=== PATIENT | female | born 1950 | race Caucasian/White ===

== ENCOUNTER 2017-10-05 14:14 | Emergency (ER) | payer MEDICARE ==
[2017-10-05] MEDS ORDERED: SODIUM CHLORIDE 0.9% 1,000 ML IV STA (14:27)
[2017-10-05] MEDS ORDERED: SODIUM CHLORIDE 0.9% 500 ML IV STA (14:27)
[2017-10-05] MEDS ORDERED: ONDANSETRON 4 MG/2 ML VIAL IVP STA (14:27)
[2017-10-05] MEDS ORDERED: LORazepam 2 MG/ML INJ IV STA (14:28)
[2017-10-05 14:43] LABS: Basophils % (A) 0 %; Eosinophils # (A) 0.2 k/uL (0-0.7); Eosinophils % (A) 2 %; HCT 43.7 % (34.0-46.0); HGB 13.7 gm/dL (11.4-16.0); Lymphocytes # (A) 1.6 k/uL (1.0-4.8); Lymphocytes % (A) 14 %; MCH 26.3 pg (25.0-35.0); MCHC 31.5 g/dL (31.0-37.0); MCV 83.6 fL (80.0-100.0); Mean Platelet Volume 7.9; Monocytes # (A) 0.5 k/uL (0-1.0); Monocytes % (A) 4 %; Neutrophils # (A) 8.6 k/uL (1.3-7.7); Neutrophils % (A) 78 %; Platelet Count 306 k/uL (150-450); RBC 5.22 m/uL (3.80-5.40); RDW 14.1 % (11.5-15.5)
--- NOTE | 2017-10-05 14:48 | ED ---
General Adult HPI - General Chief complaint: Nausea/Vomiting/Diarrhea Stated complaint: NAUSEA/VOMITING Time Seen by Provider: 10/05/17 14:17 Source: patient, EMS, RN notes reviewed, old records reviewed Mode of arrival: EMS Limitations: no limitations - History of Present Illness Initial comments: This is a 67-year-old female to the ER for evaluation intractable nausea and vomiting. Patient has history of LAP-BAND surgery, coming in today with significant nausea vomiting abdominal pain and weakness. No recent travel history no sick contacts no fevers. No diarrhea patient is a decreased appetite - Related Data Home Medications Medication Instructions Recorded Confirmed Benazepril HCl 40 mg PO DAILY 10/05/17 10/05/17 Fluticasone Nasal [place] [Flonase 1 spray EA NOSTRIL DAILY 10/05/17 10/05/17 Nasal [place]] Montelukast [Singulair] 10 mg PO DAILY 10/05/17 10/05/17 Multivitamins, Thera [Multivitamin 1 tab PO DAILY 10/05/17 10/05/17 (formulary)] Pantoprazole [Protonix] 40 mg PO DAILY 10/05/17 10/05/17 amLODIPine [Norvasc] 5 mg PO DAILY 10/05/17 10/05/17 tiZANidine HCL 4 mg PO Q8HR 10/05/17 10/05/17 traMADol HCL [Ultram] 100 mg PO Q8HR 10/05/17 10/05/17 Allergies Allergy/AdvReac Type Severity Reaction Status Date / Time No Known Allergies Allergy Verified 10/05/17 14:55 Review of Systems ROS Statement: Those systems with pertinent positive or pertinent negative responses have been documented in the HPI. ROS Other: All systems not noted in ROS Statement are negative. Past Medical History Past Medical History: Diabetes Mellitus, Fibromyalgia, Hypertension History of Any Multi-Drug Resistant Organisms: None Reported Past Surgical History: Cholecystectomy, Hysterectomy Past Psychological History: No Psychological Hx Reported Smoking Status: Never smoker Past Alcohol Use History: None Reported Past Drug Use History: None Reported General Exam Limitations: no limitations General appearance: alert, in no apparent distress, anxious Head exam: Present: atraumatic, normocephalic, normal inspection Eye exam: Present: normal appearance, PERRL, EOMI. Absent: scleral icterus, conjunctival injection, periorbital swelling ENT exam: Present: normal exam, mucous membranes moist Neck exam: Present: normal inspection. Absent: tenderness, meningismus, lymphadenopathy Respiratory exam: Present: normal lung sounds bilaterally. Absent: respiratory distress, wheezes, rales, rhonchi, stridor Cardiovascular Exam: Present: regular rate, normal rhythm, normal heart sounds. Absent: systolic murmur, diastolic murmur, rubs, gallop, clicks GI/Abdominal exam: Present: soft, normal bowel sounds. Absent: distended, tenderness, guarding, rebound, rigid Extremities exam: Present: normal inspection, full ROM, normal capillary refill. Absent: tenderness, pedal edema, joint swelling, calf tenderness Back exam: Present: normal inspection Neurological exam: Present: alert, oriented X3, CN II-XII intact Psychiatric exam: Present: normal affect, normal mood Skin exam: Present: warm, dry, intact, normal color. Absent: rash Course Vital Signs 10/05/17 10/05/17 14:16 16:51 Temperature 97.5 F L Pulse Rate 90 98 Respiratory 18 16 Rate Blood Pressure 194/96 169/85 O2 Sat by Pulse 98 91 L Oximetry - Reevaluation(s) Reevaluation #1: 10/05/17 15:58 Pain and nausea currently well-controlled EKG Findings - EKG Comments: EKG Findings:: EKG shows normal sinus rhythm rate of 75, NH 140, QRS 90, QTc 469 Medical Decision Making - Lab Data Result diagrams: 10/05/17 14:20 10/05/17 14:20 Lab Results 10/05/17 10/05/17 10/05/17 Range/Units 14:20 14:20 14:20 WBC 11.0 H (3.8-10.6) k/uL RBC 5.22 (3.80-5.40) m/uL Hgb 13.7 (11.4-16.0) gm/dL Hct 43.7 (34.0-46.0) % MCV 83.6 (80.0-100.0) fL MCH 26.3 (25.0-35.0) pg MCHC 31.5 (31.0-37.0) g/dL RDW 14.1 (11.5-15.5) % Plt Count 306 (150-450) k/uL Neutrophils % 78 % Lymphocytes % 14 % Monocytes % 4 % Eosinophils % 2 % Basophils % 0 % Neutrophils # 8.6 H (1.3-7.7) k/uL Lymphocytes # 1.6 (1.0-4.8) k/uL Monocytes # 0.5 (0-1.0) k/uL Eosinophils # 0.2 (0-0.7) k/uL Basophils # 0.0 (0-0.2) k/uL PT (9.0-12.0) sec INR (<1.2) APTT (22.0-30.0) sec Sodium 143 (137-145) mmol/L Potassium 3.7 (3.5-5.1) mmol/L Chloride 105 (98-107) mmol/L Carbon Dioxide 22 (22-30) mmol/L Anion Gap 16 mmol/L BUN 18 H (7-17) mg/dL Creatinine 0.91 (0.52-1.04) mg/dL Est GFR (CKD-EPI)AfAm 76 (>60 ml/min/1.73 sqM) Est GFR (CKD-EPI)NonAf 65 (>60 ml/min/1.73 sqM) Glucose 215 H (74-99) mg/dL Plasma Lactic Acid Bird (0.7-2.0) mmol/L Calcium 9.7 (8.4-10.2) mg/dL Phosphorus 1.7 L (2.5-4.5) mg/dL Magnesium 1.8 (1.6-2.3) mg/dL Total Bilirubin 0.5 (0.2-1.3) mg/dL AST 23 (14-36) U/L ALT 17 (9-52) U/L Alkaline Phosphatase 97 (38-126) U/L Total Creatine Kinase 45 (30-135) U/L CK-MB (CK-2) 1.1 (0.0-2.4) ng/mL CK-MB (CK-2) Rel Index 2.4 Troponin I <0.012 (0.000-0.034) ng/mL Total Protein 7.3 (6.3-8.2) g/dL Albumin 4.3 (3.5-5.0) g/dL Urine Color Urine Appearance (Clear) Urine pH (5.0-8.0) Ur Specific [place] (1.001-1.035) Urine Protein (Negative) Urine Glucose (UA) (Negative) Urine Ketones (Negative) Urine Blood (Negative) Urine Nitrite (Negative) Urine Bilirubin (Negative) Urine Urobilinogen (<2.0) mg/dL Ur Leukocyte Esterase (Negative) Urine WBC (0-5) /hpf Ur Squamous Epith Cells (0-4) /hpf Amorphous Sediment (None) /hpf Urine Bacteria (None) /hpf 10/05/17 10/05/17 10/05/17 Range/Units 14:20 14:20 14:20 WBC (3.8-10.6) k/uL RBC (3.80-5.40) m/uL Hgb (11.4-16.0) gm/dL Hct (34.0-46.0) % MCV (80.0-100.0) fL MCH (25.0-35.0) pg MCHC (31.0-37.0) g/dL RDW (11.5-15.5) % Plt Count (150-450) k/uL Neutrophils % % Lymphocytes % % Monocytes % % Eosinophils % % Basophils % % Neutrophils # (1.3-7.7) k/uL Lymphocytes # (1.0-4.8) k/uL Monocytes # (0-1.0) k/uL Eosinophils # (0-0.7) k/uL Basophils # (0-0.2) k/uL PT 9.9 (9.0-12.0) sec INR 1.0 (<1.2) APTT 21.5 L (22.0-30.0) sec Sodium (137-145) mmol/L Potassium (3.5-5.1) mmol/L Chloride (98-107) mmol/L Carbon Dioxide (22-30) mmol/L Anion Gap mmol/L BUN (7-17) mg/dL Creatinine (0.52-1.04) mg/dL Est GFR (CKD-EPI)AfAm (>60 ml/min/1.73 sqM) Est GFR (CKD-EPI)NonAf (>60 ml/min/1.73 sqM) Glucose (74-99) mg/dL Plasma Lactic Acid Bird 2.4 H* (0.7-2.0) mmol/L Calcium (8.4-10.2) mg/dL Phosphorus (2.5-4.5) mg/dL Magnesium (1.6-2.3) mg/dL Total Bilirubin (0.2-1.3) mg/dL AST (14-36) U/L ALT (9-52) U/L Alkaline Phosphatase (38-126) U/L Total Creatine Kinase (30-135) U/L CK-MB (CK-2) (0.0-2.4) ng/mL CK-MB (CK-2) Rel Index Troponin I (0.000-0.034) ng/mL Total Protein (6.3-8.2) g/dL Albumin (3.5-5.0) g/dL Urine Color Light Yellow Urine Appearance Cloudy H (Clear) Urine pH 7.5 (5.0-8.0) Ur Specific [place] 1.012 (1.001-1.035) Urine Protein Negative (Negative) Urine Glucose (UA) 2+ H (Negative) Urine Ketones 1+ H (Negative) Urine Blood Negative (Negative) Urine Nitrite Negative (Negative) Urine Bilirubin Negative (Negative) Urine Urobilinogen <2.0 (<2.0) mg/dL Ur Leukocyte Esterase Negative (Negative) Urine WBC 5 (0-5) /hpf Ur Squamous Epith Cells 6 H (0-4) /hpf Amorphous Sediment Rare H (None) /hpf Urine Bacteria Occasional H (None) /hpf Disposition Clinical Impression: Nausea & vomiting Disposition: HOME SELF-CARE Condition: Good Instructions: Acute Nausea and Vomiting (ED) Is patient prescribed a controlled substance at d/c from ED?: No Referrals: Aurora Montenegro DO [Primary Care Provider] - 1-2 days
[2017-10-05 14:49] LABS: Amorphous Sediment,Urine Rare /hpf; Appearance,Urine Cloudy (Clear); Bacteria,Urine Occasional /hpf; Bilirubin,Urine Negative (Negative); Blood,Urine Negative (Negative); Color,Urine Light Yellow; Glucose,Urine (UA) 2+ (Negative); Ketones,Urine 1+ (Negative); Leukocyte Esterase,Urine Negative (Negative); Nitrite,Urine Negative (Negative); PH, Urine 7.5 (5.0-8.0); Protein,Urine Negative (Negative); Specific Gravity,Urine 1.012 (1.001-1.035); Squamous Epithelial Cell,Urine 6 /hpf (0-4); Urobilinogen,Urine <2.0 mg/dL (<2.0); WBC,Urine 5 /hpf (0-5)
[2017-10-05 14:57] LABS: Prothrombin Time 9.9 sec (9.0-12.0)
[2017-10-05 15:03] LABS: Albumin 4.3 g/dL (3.5-5.0); Calcium 9.7 mg/dL (8.4-10.2); Creatine Kinase 45 U/L (30-135); Magnesium 1.8 mg/dL (1.6-2.3); Phosphorus 1.7 mg/dL (2.5-4.5); Total Bilirubin 0.5 mg/dL (0.2-1.3); Total Protein 7.3 g/dL (6.3-8.2)
[2017-10-05 15:04] LABS: Potassium 3.7 mmol/L (3.5-5.1)
[2017-10-05 15:05] LABS: Partial Thromboplastin Time 21.5 sec (22.0-30.0)
[2017-10-05 15:14] LABS: Creatine Kinase MB 1.1 ng/mL (0.0-2.4); Troponin I <0.012 ng/mL (0.000-0.034)
--- NOTE | 2017-10-05 15:39 | XR ---
EXAMINATION TYPE: XR abdomen acute w cxr DATE OF EXAM: 10/05/2017 CLINICAL HISTORY: Chest pain. Nausea and vomiting today. TECHNIQUE: Single frontal view of chest is obtained. Supine and upright views of the abdomen are acq uired. COMPARISON: None. FINDINGS: There is chronic parenchymal change without suspicious focal airspace opacity, pleural effu robb, or pneumothorax seen bilaterally. Cardiac silhouette size appears upper limits of normal. Oss eous structures are demineralized. Lap band device is malpositioned projecting both above left hemidiaphragm suggesting slippage. Phi an gle is maintained. Gas is noted in nondistended small bowel loops. Gas and fecal material is seen in nondistended colon. Numerous pelvic phleboliths are seen. No pneumoperitoneum is evident. IMPRESSION: 1. Cardiomegaly and chronic changes without acute pulmonary process. 2. Overall nonspecific but likely nonobstructive bowel gas pattern. Lap band slippage is present. Adv ise surgical referral to assess for removal.
[2017-10-05] MEDS ORDERED: IOPAMIDOL-300 CONTRAST 30 ML VIAL (ORAL USE) PO PRN (15:48)
[2017-10-05] MEDS ORDERED: RX INFO: IV CONTRAST WAS GIVEN 1 EACH MISC MISCELLANE PRN (15:48)
[2017-10-05] MEDS ORDERED: MORPHINE SULFATE 4 MG/ML SYRINGE IVP STA (15:48)
[2017-10-05 16:52] VITALS: BP 169/85; PULSE 98; RESP 16
--- NOTE | 2017-10-05 16:55 | CT ---
EXAMINATION TYPE: CT abdomen pelvis w con DATE OF EXAM: 10/05/2017 COMPARISON: NONE INDICATION: Nausea, vomiting and dizziness today DLP: 1214.1 mGycm, Automated exposure control for dose reduction was used. CONTRAST: 100 mL of Isovue 300. Study performed with Oral Contrast TECHNIQUE: Axial images were obtained from above the diaphragm to the pubic rami in the axial plane a t 5 mm thick sections. Reconstructed images are reviewed on the computer in the coronal plane. FINDINGS: Limited CT sections are obtained the lung bases. The lung bases are clear. LAP-BAND is evident with in the upper abdomen. There is a moderate-sized hiatal hernia present. Stomach appears unremarkable. CT ABDOMEN: Liver: Normal Spleen: Normal Pancreas: Normal Adrenal glands: The adrenal glands are normal. Gallbladder: Surgically absent Kidneys: No masses are evident. No hydronephrosis is present. No cysts are present. Delayed images were obtained through the kidneys, which remain unremarkable. Aorta: Vascular calcification is within the aorta. Inferior vena cava: Normal. CT PELVIS: Loops of bowel within the abdomen and pelvis are normal. There are loops of bowel which are incom pletely distended or lack oral contrast limiting their evaluation. Appendix: Normal as visualized. Urinary bladder: Normal. Genitourinary structures: Uterus and ovaries are not identified. Osseous structures: No suspicious lytic or sclerotic lesions. IMPRESSIONS: 1. Left basilar present. 2. Moderate sized Hiatal hernia.
[2017-10-05 17:33] VITALS: TEMP 97.6
== END 2017-10-05 17:32 | disposition home or self-care (01) ==
LOC: EC 14:14
DX: R11.2 Nausea with vomiting, unspecified (principal); R10.9 Unspecified abdominal pain; R53.1 Weakness; M79.7 Fibromyalgia; I10 Essential (primary) hypertension; Z79.51 Long term (current) use of inhaled steroids; Z79.899 Other long term (current) drug therapy; Z98.890 Other specified postprocedural states
CPT/HCPCS: 36415; 93005; 80053; 82550; 82553; 83605; 83735; 84100; 84484; 85025; 85610; 85730; 81001; 87086; 74022; 74177; 99285; 96374; 96375 ×2; 96361; J2060; J2270; J2405; Q9967

== ENCOUNTER → 2017-10-30 | Outpatient (CLI) | payer MEDICARE ==
--- NOTE | 2017-10-30 16:51 | P.HPBAR ---
Bariatric H&P - History & Physicial H&P Date: 10/30/17 History & Physicial: Visit/CC: Patient initial contact: Initial weight: Initial weight in pounds: Height: Initial BMI: Last weight: Current weight: Current weight in pounds: Current BMI: [place] body weight (based on NIH guidelines): Excess body weight loss: The patient is a 67 year-old F who presents for Bariatric Assessment. The patient presents today for lab band follow. She's not been seen in several years. The patient had a recent in retrograde visit for abdominal pain. She is found have evidence of a hiatal hernia in the LAP-BAND migration into the chest within the hiatal hernia. She's had troubles with dysphagia. Past Medical History Past Medical History: Diabetes Mellitus, Fibromyalgia, Hypertension, Respiratory Disorder Additional Past Medical History / Comment(s): Type 2 DM resolved one year after lap band placed, patient states her blood sugars, chronic sinsusitis History of Any Multi-Drug Resistant Organisms: None Reported Past Surgical History: Bariatric Surgery, Cholecystectomy, Hysterectomy Additional Past Surgical History / Comment(s): Lap band 2001 (??) Past Anesthesia/Blood Transfusion Reactions: No Reported Reaction, Motion Sickness Additional Past Anesthesia/Blood Transfusion Reaction / Comm: No blood transfusion to date Past Psychological History: No Psychological Hx Reported Smoking Status: Never smoker Past Alcohol Use History: None Reported Past Drug Use History: None Reported Surgical - Exam - General well developed, no distress - Eyes PERRL - Abdomen Abdomen: soft, non tender Bariatric Assessment & Plan Plan: The patient's CAT scan was reviewed with her. She has a large hiatal hernia. The stomach and LAP-BAND have migrated into the chest. I discussed patient that she will need to have her band removed. It her hiatal hernia repair. Her LAP-BAND was emptied she had 2 mL removed from her band. She'll be scheduled for surgery next week. Bariatric Checklist Checklist: Plan: Checklist: EGD: 1. Hiatal hernia: 2. H. Pylori: HgbA1c: Vitamin D: Smoking: Never smoker Primary care physician referral: Psychiatry clearance: Cardiology clearance: Sleep study: Diet journal: VTE risk score: VTE risk level: Rehab needs at discharge:
[2017-10-30 16:58] VITALS: BP 142/86; PULSE 78; RESP 14; TEMP 97.8; BMI 34.7
[2017-10-30 17:00] LABS: Basophils % (A) 1 %; Eosinophils # (A) 0.3 k/uL (0-0.7); Eosinophils % (A) 4 %; HGB 13.4 gm/dL (11.4-16.0); Lymphocytes # (A) 1.9 k/uL (1.0-4.8); Lymphocytes % (A) 25 %; MCH 27.3 pg (25.0-35.0); MCHC 31.9 g/dL (31.0-37.0); MCV 85.5 fL (80.0-100.0); Mean Platelet Volume 7.3; Monocytes # (A) 0.5 k/uL (0-1.0); Monocytes % (A) 7 %; Neutrophils # (A) 4.5 k/uL (1.3-7.7); Neutrophils % (A) 61 %; Platelet Count 264 k/uL (150-450); RBC 4.91 m/uL (3.80-5.40); RDW 14.4 % (11.5-15.5); WBC 7.4 k/uL (3.8-10.6)
[2017-10-30 17:03] LABS: Albumin 4.2 g/dL (3.5-5.0); Calcium 10.2 mg/dL (8.4-10.2); Potassium 4.6 mmol/L (3.5-5.1); Total Bilirubin 0.3 mg/dL (0.2-1.3); Total Protein 6.8 g/dL (6.3-8.2)
== END | disposition home or self-care (01) ==
LOC: BARWHC3 14:26
PROVIDERS: ATTEND Surgery
DX: Z48.815 Encounter for surgical aftercare following surgery on the digestive system (principal); K44.9 Diaphragmatic hernia without obstruction or gangrene; Z01.812 Encounter for preprocedural laboratory examination; Z98.84 Bariatric surgery status
CPT/HCPCS: 80053; 85025; G0463; 99201

== ENCOUNTER 2017-11-06 08:29 | Day surgery (SDC) | payer MEDICARE ==
[~2017-11-06 08:29] MED LIST: DEXAMETHASONE SOD PHOSPHATE 10 MG/ML 1 ML VIAL IV ONE; ENOXAPARIN 40 MG/0.4 ML SYRINGE SQ ONE; HYDROmorphone 0.5 MG/0.5 ML SYRINGE IVP PRN; LACTATED RINGERS 1,000 ML IV SCH; LIDOCAINE 1% 20 ML VIAL (10MG/ML) FOR IV START INTRADERMA PRN; ONDANSETRON 4 MG/2 ML VIAL IVP ONE; ONDANSETRON 4 MG/2 ML VIAL IVP PRN; SCOPOLAMINE 1.5MG/72HR PATCH TRANSDERM ONE; ceFAZolin IN SWFI 2 GM/20 ML SYRINGE IVP ONE; fentaNYL (PF) 50 MCG/ML 2 ML AMP IV PRN
[2017-11-06 09:12] LABS: Glucose,Whole Blood 117 mg/dL (75-99)
[2017-11-06] MEDS: MIDAZOLAM 2 MG/2 ML VIAL IV PRN ×2 (09:20→09:28)
--- NOTE | 2017-11-06 10:09 | P.GSHP ---
History of Present Illness H&P Date: 11/06/17 Chief Complaint: Gastric prolapse and hiatal hernia This is a 67-year-old female who presents today for removal LAP-BAND and repair of hiatal hernia. Patient developed a hiatal hernia which the band is no the intrathoracic position. She presents today for removal band and repair of hiatal hernia. Past Medical History Past Medical History: Diabetes Mellitus, Fibromyalgia, Hypertension Additional Past Medical History / Comment(s): Type 2 DM resolved one year after lap band placed, chronic sinsusitis History of Any Multi-Drug Resistant Organisms: None Reported Past Surgical History: Bariatric Surgery, Cholecystectomy, Hysterectomy Additional Past Surgical History / Comment(s): Lap band 2001, RAHUL CATARACTS Past Anesthesia/Blood Transfusion Reactions: Motion Sickness, Postoperative Nausea & Vomiting (PONV) Additional Past Anesthesia/Blood Transfusion Reaction / Comment(s): No blood transfusion to date Past Psychological History: No Psychological Hx Reported Smoking Status: Never smoker Past Alcohol Use History: Rare Past Drug Use History: None Reported - Past Family History Brother(s) Family Medical History: Cancer Father Family Medical History: Deep Vein Thrombosis (DVT) Medications and Allergies Home Medications Medication Instructions Recorded Confirmed Type Benazepril HCl 40 mg PO QAM 10/05/17 11/06/17 History Montelukast [Singulair] 10 mg PO DAILY 10/05/17 11/02/17 History Multivitamins, Thera [Multivitamin 1 tab PO DAILY 10/05/17 11/06/17 History (formulary)] Pantoprazole [Protonix] 40 mg PO DAILY 10/05/17 11/06/17 History amLODIPine [Norvasc] 5 mg PO QAM 10/05/17 11/06/17 History tiZANidine HCL 4 mg PO Q8HR 10/05/17 11/06/17 History traMADol HCL [Ultram] 50 mg PO DIRECTED 10/05/17 11/06/17 History Zolpidem [Ambien] 10 mg PO HS 11/02/17 11/06/17 History Allergies Allergy/AdvReac Type Severity Reaction Status Date / Time No Known Allergies Allergy Verified 11/06/17 09:33 Surgical - Exam Vital Signs Temp Pulse Resp BP Pulse Ox 98.5 F 85 18 155/97 99 11/06/17 09:08 11/06/17 09:08 11/06/17 09:08 11/06/17 09:08 11/06/17 09:08 - General well developed, no distress - Eyes PERRL - ENT normal pinna - Neck no masses - Respiratory normal expansion - Cardiovascular Rhythm: regular - Abdomen Abdomen: soft, non tender Results - Labs Abnormal Lab Results - Last 24 Hours (Table) 11/06/17 Range/Units 09:05 POC Glucose (mg/dL) 117 H (75-99) mg/dL Assessment and Plan Assessment: Hiatal hernia with possible gastric prolapse. Patient undergo removal LAP-BAND and repair of hiatal hernia.
[2017-11-06] MEDS ORDERED: LIDOCAINE 1% INJ 10MG/ML (20 ML MDV) ONE (10:33)
[2017-11-06] MEDS ORDERED: PROPOFOL 10 MG/ML 20 ML VIAL IV ONE (10:33)
[2017-11-06] MEDS ORDERED: fentaNYL (PF) 50 MCG/ML 2 ML AMP ONE (10:33)
[2017-11-06] MEDS ORDERED: GLYCOPYRROLATE 0.2 MG/ML 2 ML VIAL ONE (10:33)
[2017-11-06] MEDS ORDERED: ROCURONIUM BROMIDE 10 MG/ML 10 ML VIAL IV ONE (10:33)
[2017-11-06] MEDS ORDERED: ePHEDrine SULFATE/0.9% NACL/PF 50 MG/5 ML SYRINGE IV ONE (10:33)
[2017-11-06] MEDS ORDERED: NEOSTIGMINE 1 MG/ML 10 ML VIAL ONE (10:33)
[2017-11-06] MEDS ORDERED: HYDROmorphone (PF) 1 MG/ML ONE (10:33)
[2017-11-06] MEDS ORDERED: MORPHINE SULFATE 10 MG/ML SYRINGE ONE (10:33)
[2017-11-06] MEDS ORDERED: KETOROLAC 30 MG/ML 1 ML VIAL ONE (10:33)
[2017-11-06] MEDS ORDERED: SUCCINYLCHOLINE CHLORIDE 100 MG/5 ML SYR IV ONE (10:33)
[2017-11-06] MEDS ORDERED: MIDAZOLAM 2 MG/2 ML VIAL ONE (10:33)
[2017-11-06] MEDS ORDERED: BUPIVACAINE (PF) 0.5% 30 ML VIAL SQ ONE (11:09)
[2017-11-06] MEDS ORDERED: LACTATED RINGERS 1,000 ML IV ONE (12:10)
[2017-11-06] MEDS ORDERED: ONDANSETRON 4 MG/2 ML VIAL IVP PRN (12:21)
[2017-11-06] MEDS ORDERED: HYDROmorphone 0.5 MG/0.5 ML SYRINGE IVP PRN (12:21)
--- NOTE | 2017-11-06 12:28 | P.OP ---
Date of Procedure: 11/06/17 Preoperative Diagnosis: Hiatal hernia Intrathoracic LAP-BAND Gastric prolapse Postoperative Diagnosis: Hiatal hernia Intrathoracic [place] Gastric prolapse Procedure(s) Performed: Laparoscopic removal LAP-BAND Laparoscopic repair of hiatal hernia Anesthesia: CATHERINE Surgeon: David Mayorga Estimated Blood Loss (ml): 20 Pathology: none sent Condition: stable Disposition: PACU Description of Procedure: The patient's placed on the operative table in the supine position. She received IV sedation and then general anesthesia. His placed in dorsal 5. Her abdomen was prepped and draped in usual sterile fashion. The skin was incised at the LAP-BAND port site. Using blunt and sharp dissection and electrocautery LAP-BAND port was excised. Then using a 5 mm optical trocar under direct visualization the peritoneal cavity is entered. The abdomen was then insufflated after adequate insufflation the laparoscope was placed back into the peritoneal cavity. Next a 5 mm trochars placed in the right upper quadrant , right lateral, left lateral position. A another 5 mm trocar was placed in the left periumbilical area. The left lateral lobe liver was retracted. Stomach was visualized. Patient had a hiatal hernia in the posterior portion of the LAP-BAND was within the thorax. The LAP-BAND device was retracted back into the pleural cavity. And then using blunt and sharp dissection with cautery the anterior gastric wall plication was taken down care was taken to identify and preserve the gastric wall. The LAP-BAND device was then cut withdrawn from the stomach. At this point the niki was dissected free from the stomach. And then the stomach was insufflated with methylene blue normal saline. 500 mL of fluid was used the trochars withdrawn. The skin was closed interrupted 3-0 Monocryl suture. Dermabond was applied. used to fill the stomach there is no evidence of leaks. At this point the hiatal hernia was closed using 2-0 Ethibond suture. The abdomen was irrigated there is no bleeding seen.
[2017-11-06] MEDS ORDERED: D5-0.45% NACL WITH KCL 20MEQ/L 1,000 ML IV SCH (13:15)
[2017-11-06 14:19] VITALS: BMI 34.0
[2017-11-06] MEDS ORDERED: hydrALAZINE HCL 25 MG TAB PO STA (14:53)
--- NOTE | 2017-11-06 15:06 | P.CONS ---
History of Present Illness - Reason for Consult Consult date: 11/06/17 Medical management Requesting physician: David Mayorga - Chief Complaint Status post hiatal hernia repair and lap and removal - History of Present Illness This is a 67-year-old female, patient of [facility]. Patient has a known past medical history of hypertension, lap band procedure in 2001, fibromyalgia, vertigo, type 2 diabetes mellitus now resolved after weight loss from flat that procedure. Patient over the last couple months has had vomiting area. Last episode of vomiting was in September and which she required a visit at the ER. At that time she was found to have a moderate sized hiatal hernia. And was told that the LAP-BAND had moved. Patient underwent surgery today with Dr. Mayorga for laparoscopic hiatal hernia repair and removal of lap band. Patient has tolerated surgery well. Patient is complaining of gas pain in her shoulders. She also reports that she had been anxious prior to surgery. However, now per patient reporting that she is feeling very calm. She is still having elevated blood pressure. Systolic blood pressures ranging in the 180s. She did report taking her MAYKEL inhibitor and the Norvasc this morning prior to surgery. Patient denies any chest pain or shortness of breath. Denies any nicotine use or alcohol use. Denies any nausea or vomiting. Denies any bowel movement changes or urinary symptoms. We have been consulted for medical management. Review of Systems Please refer to HPI otherwise unremarkable Past Medical History Past Medical History: Diabetes Mellitus, Fibromyalgia, Hypertension Additional Past Medical History / Comment(s): Type 2 DM resolved one year after lap band placed, chronic sinsusitis History of Any Multi-Drug Resistant Organisms: None Reported Past Surgical History: Bariatric Surgery, Cholecystectomy, Hysterectomy Additional Past Surgical History / Comment(s): Lap band 2001, RAHUL CATARACTS Past Anesthesia/Blood Transfusion Reactions: Motion Sickness, Postoperative Nausea & Vomiting (PONV) Additional Past Anesthesia/Blood Transfusion Reaction / Comm: No blood transfusion to date Past Psychological History: No Psychological Hx Reported Smoking Status: Never smoker Past Alcohol Use History: Rare Past Drug Use History: None Reported - Past Family History Brother(s) Family Medical History: Cancer Father Family Medical History: Deep Vein Thrombosis (DVT) Medications and Allergies Home Medications Medication Instructions Recorded Confirmed Type Benazepril HCl 40 mg PO QAM 10/05/17 11/06/17 History Montelukast [Singulair] 10 mg PO DAILY 10/05/17 11/02/17 History Multivitamins, Thera [Multivitamin 1 tab PO DAILY 10/05/17 11/06/17 History (formulary)] Pantoprazole [Protonix] 40 mg PO DAILY 10/05/17 11/06/17 History amLODIPine [Norvasc] 5 mg PO QAM 10/05/17 11/06/17 History tiZANidine HCL 4 mg PO Q8HR 10/05/17 11/06/17 History traMADol HCL [Ultram] 50 mg PO DIRECTED 10/05/17 11/06/17 History Zolpidem [Ambien] 10 mg PO HS 11/02/17 11/06/17 History Allergies Allergy/AdvReac Type Severity Reaction Status Date / Time No Known Allergies Allergy Verified 11/06/17 09:33 Physical Exam Vitals: Vital Signs Temp Pulse Resp BP Pulse Ox 11/06/17 14:28 86 16 177/81 98 11/06/17 14:13 96.9 F L 91 16 183/95 97 11/06/17 13:32 97 14 168/72 100 11/06/17 13:17 93 12 165/75 100 11/06/17 13:02 95 16 171/76 100 11/06/17 12:47 96 14 167/103 100 11/06/17 12:32 97.0 F L 100 16 173/78 100 11/06/17 09:08 98.5 F 85 18 155/97 99 Intake and Output 11/05/17 11/06/17 11/06/17 22:59 06:59 14:59 Intake Total 1800 Output Total 20 Balance 1780 Intake: IV 1800 Output: Estimated Blood Loss 20 Other: Voiding Method Toilet Weight 92.8 kg Head normocephalic Neck supple Lungs clear to auscultation bilaterally no wheezing or crackles Heart regular rate and rhythm S1-S2, no rub or gallop Abdomen is soft tender incision sites. Incision site clean and intact. Minimal dried blood. Extremities no edema. SCDs in place Neuro alert and orientated to 3 Results Labs: Abnormal Lab Results - Last 24 Hours (Table) 11/06/17 Range/Units 09:05 POC Glucose (mg/dL) 117 H (75-99) mg/dL Assessment and Plan Assessment: 1. Hiatal hernia, intrathoracic lap band, and gastric prolapse. Patient status post laparoscopic removal of lap band and repair of hiatal hernia. Patient has tolerated surgery well. Continue with current postop orders. Surgeries place patient on a clear liquid diet. Continue with the [place] for pain control 2. Essential hypertension: Patient has been having episodes of accelerated hypertension. Will give 1 dose of hydralazine 25 mg by mouth 1. Resume patient's Norvasc and MAYKEL inhibitor. Continue to monitor blood pressure closely. We'll make further adjustments as needed. 3. History of fibromyalgia 4. Generalized anxiety disorder. 5. History of Diabetes mellitus type 2 that resolved after weight loss. We'll place patient on sliding scale with Accu-Cheks every before meals and at bedtime. Check A1c GI prophylaxis Protonix and DVT prophylaxis Lovenox Thank you for this consultation. We'll continue to follow along with you. Time with Patient: Greater than 30 (Greater than 60% of the total time spent in counseling and coordination of care.I performed an examination of the patient and discussed their management with the physician Population Geneticist. I have reviewed the Physician Population Geneticist's notes and agree with the documented findings and plan of care)
[2017-11-06 17:04] LABS: Glucose,Whole Blood 262 mg/dL (75-99)
[2017-11-06] MEDS: INSULIN ASPART 100 UNIT/ML 1 ML 10 ML VIAL SQ SCH ×2 (17:08→21:20)
[2017-11-06] MEDS: SODIUM CHLORIDE 0.9% 1,000 ML IV SCH (17:10)
[2017-11-06 21:08] LABS: Glucose,Whole Blood 243 mg/dL (75-99)
[2017-11-06 21:54] VITALS: RESP 18
[2017-11-07] MEDS: SODIUM CHLORIDE 0.9% 1,000 ML IV SCH ×2 (00:28→08:22)
[2017-11-07 07:02] LABS: Glucose,Whole Blood 95 mg/dL (75-99)
[2017-11-07 07:06] LABS: Basophils % (A) 0 %; Eosinophils # (A) 0.1 k/uL (0-0.7); Eosinophils % (A) 0 %; HCT 39.3 % (34.0-46.0); HGB 12.7 gm/dL (11.4-16.0); Lymphocytes # (A) 1.8 k/uL (1.0-4.8); Lymphocytes % (A) 16 %; MCH 27.9 pg (25.0-35.0); MCHC 32.4 g/dL (31.0-37.0); Mean Platelet Volume 7.1; Monocytes # (A) 0.9 k/uL (0-1.0); Monocytes % (A) 8 %; Neutrophils # (A) 8.2 k/uL (1.3-7.7); Neutrophils % (A) 73 %; Platelet Count 306 k/uL (150-450); RBC 4.57 m/uL (3.80-5.40); WBC 11.3 k/uL (3.8-10.6)
[2017-11-07 07:09] VITALS: BP 148/86; PULSE 80; TEMP 98.2
[2017-11-07 07:20] LABS: Albumin 3.9 g/dL (3.5-5.0); Calcium 9.5 mg/dL (8.4-10.2); Potassium 4.4 mmol/L (3.5-5.1); Total Bilirubin 0.5 mg/dL (0.2-1.3); Total Protein 6.2 g/dL (6.3-8.2)
[2017-11-07] MEDS ORDERED: PANTOPRAZOLE 40 MG TABLET PO SCH (07:30)
[2017-11-07] MEDS: INSULIN ASPART 100 UNIT/ML 1 ML 10 ML VIAL SQ SCH ×2 (07:52→12:41)
[2017-11-07] MEDS ORDERED: amLODIPine 5 MG TAB PO SCH (09:00)
[2017-11-07] MEDS ORDERED: LISINOPRIL 20 MG TAB PO SCH (09:00)
[2017-11-07] MEDS ORDERED: ENOXAPARIN 40 MG/0.4 ML SYRINGE SQ SCH (09:00)
[2017-11-07] MEDS ORDERED: HYDROcodone/APAP 5-325MG 1 EACH TAB PO PRN (09:16)
[2017-11-07] MEDS: MONTELUKAST 10 MG TAB PO SCH ×2 (09:23→09:38)
--- NOTE | 2017-11-07 11:04 | P.PN ---
Subjective Progress Note Date: 11/07/17 67-year-old female seen examined at bedside sitting up in bed patient reports did not sleep last night was given IV Dilaudid which "made my mouth dry felt dizzy lightheaded do not like the sensation. Patient is refusing to have the FL esophagram states the last time made her feel nauseated and she had loose stool diarrhea" patient states she feels like she swallowing without any difficulty. Is anxious to be discharged. Patient does report having discomfort to the bilateral shoulders states belching not passing gas rectally no stool no nausea no vomiting Postop November 06 laparoscopic removal of the LAP-BAND, laparoscopic repair of hiatal hernia Objective - Vital Signs Vital signs: Vital Signs Temp 98.2 F 11/07/17 07:00 Pulse 80 11/07/17 07:00 Resp 18 11/07/17 07:00 BP 148/86 11/07/17 07:00 Pulse Ox 95 11/07/17 08:54 Intake & Output 11/06/17 11/07/17 11/07/17 18:59 06:59 18:59 Intake Total 1800 400 Output Total 840 600 Balance 960 -200 Weight 92.8 kg Intake: IV 1800 Oral 400 Output: Urine 820 600 Estimated Blood Loss 20 Other: Voiding Method Toilet Toilet # Voids 1 - Exam Physical exam 67-year-old female sitting up in bed reports has bilateral shoulder discomfort reports no nausea vomiting Lungs adequate air movement bilaterally sats on room air 95% Heart S1-S2 audible regular Abdomen surgical dressing sites dry soft surgical tenderness appropriate a few hypoactive bowel tones urinating no difficulty Extremities no edema - Labs CBC & Chem 7: 11/07/17 06:32 11/07/17 06:32 Labs: Abnormal Lab Results - Last 24 Hours (Table) 11/06/17 11/06/17 11/07/17 Range/Units 16:49 21:07 06:32 WBC 11.3 H (3.8-10.6) k/uL Neutrophils # 8.2 H (1.3-7.7) k/uL Creatinine (0.52-1.04) mg/dL Glucose (74-99) mg/dL POC Glucose (mg/dL) 262 H 243 H (75-99) mg/dL Total Protein (6.3-8.2) g/dL 11/07/17 Range/Units 06:32 WBC (3.8-10.6) k/uL Neutrophils # (1.3-7.7) k/uL Creatinine 1.18 H (0.52-1.04) mg/dL Glucose 104 H (74-99) mg/dL POC Glucose (mg/dL) (75-99) mg/dL Total Protein 6.2 L (6.3-8.2) g/dL Assessment and Plan Assessment: Impression Status post laparoscopic removal lap band and repair hiatal hernia Intrathoracic hiatal hernia History of morbid obesity with a lap band placed 15 years prior 2001 Essential hypertension Anxiety disorder History of fibromyalgia plan Continue postop surgical care Clear liquid diet Pain control Home meds appropriate DVT and GI prophylaxis The above impression and plan of care have been discussed and directed by signing physician. Morelia Archer nurse practitioner acting as scribe for signing physician.
[2017-11-07] MEDS ORDERED: MULTIVITAMINS, THERA 1 EACH TAB PO SCH (12:00)
[2017-11-07 12:28] LABS: Glucose,Whole Blood 129 mg/dL (75-99)
--- NOTE | 2017-11-07 12:34 | FL ---
EXAMINATION TYPE: FL esophagus cervic/pharynx DATE OF EXAM: 11/07/2017 HISTORY: Lap band removal and Sneha fundoplication. COMPARISON: NONE TECHNIQUE: A single contrast esophagram is performed utilizing 25 mL of Isovue 370. 1 minute and 5 s econds of fluoroscopy time was utilized with 13 images saved. FINDINGS: The esophagus shows normal motility and emptying into the stomach. There is mild to moderate delay at the gastroesophageal junction most commonly from postoperative edema. Contrast does extend into the stomach without evidence of leak. No significant gastroesophageal reflux was seen during real time pe rformance of this study. The gastroesophageal junction does appear to be above the diaphragmatic hiat us. Correlate with surgical history. IMPRESSION: No evidence of postoperative leak. Mild to moderate delayed passage through the gastroes ophageal junction likely from postoperative edema.
--- NOTE | 2017-11-07 13:52 | P.PN ---
Subjective Progress Note Date: 11/07/17 This is a 67-year-old female, patient of [facility]. Patient has a known past medical history of hypertension, lap band procedure in 2001, fibromyalgia, vertigo, type 2 diabetes mellitus now resolved after weight loss from flat that procedure. Patient over the last couple months has had vomiting area. Last episode of vomiting was in September and which she required a visit at the ER. At that time she was found to have a moderate sized hiatal hernia. And was told that the LAP-BAND had moved. Patient underwent surgery today with Dr. Mayorga for laparoscopic hiatal hernia repair and removal of lap band. Patient has tolerated surgery well. Patient is complaining of gas pain in her shoulders. She also reports that she had been anxious prior to surgery. However, now per patient reporting that she is feeling very calm. She is still having elevated blood pressure. Systolic blood pressures ranging in the 180s. She did report taking her MAYKEL inhibitor and the Norvasc this morning prior to surgery. Patient denies any chest pain or shortness of breath. Denies any nicotine use or alcohol use. Denies any nausea or vomiting. Denies any bowel movement changes or urinary symptoms. We have been consulted for medical management. 11/07/2017 patient is tolerating a liquid diet. Patient underwent esophagram showing no evidence of postoperative leak. Mild to moderate delayed passage through the GE junction likely from postoperative edema. Patient scheduled for discharge today. Pain is tolerable. No nausea or vomiting. Reports no gas or bowel movement yet. The shoulder gas pain and neck pain she was having has shown improvement since yesterday. Blood pressures have shown improvement since the hydralazine. Creatinine is at 1.18. White count 11.3. Patient denies any burning with urination or cough Objective - Vital Signs Vital signs: Vital Signs Temp 98.2 F 11/07/17 07:00 Pulse 80 11/07/17 07:00 Resp 18 11/07/17 07:00 BP 148/86 11/07/17 07:00 Pulse Ox 95 11/07/17 08:54 Intake & Output 11/06/17 11/07/17 11/07/17 18:59 06:59 18:59 Intake Total 1800 400 Output Total 840 600 10 Balance 960 -200 -10 Weight 92.8 kg 92.8 kg Intake: IV 1800 Oral 400 Output: Urine 820 600 10 Estimated Blood Loss 20 Other: Voiding Method Toilet Toilet # Voids 1 1 - Exam Head normocephalic Neck supple Lungs clear to auscultation bilaterally no wheezing or crackles Heart regular rate and rhythm S1-S2, no rub or gallop Abdomen is soft positive bowel sounds. Tender incision sites. Incision sites clean dry and intact no evidence of infection Extremities no edema Neuro alert and orientated to 3 - Labs CBC & Chem 7: 18 06:32 18 06:32 Labs: Abnormal Lab Results - Last 24 Hours (Table) 11/06/17 11/06/17 11/07/17 Range/Units 16:49 21:07 06:32 WBC 11.3 H (3.8-10.6) k/uL Neutrophils # 8.2 H (1.3-7.7) k/uL Creatinine (0.52-1.04) mg/dL Glucose (74-99) mg/dL POC Glucose (mg/dL) 262 H 243 H (75-99) mg/dL Total Protein (6.3-8.2) g/dL 11/07/17 11/07/17 Range/Units 06:32 12:25 WBC (3.8-10.6) k/uL Neutrophils # (1.3-7.7) k/uL Creatinine 1.18 H (0.52-1.04) mg/dL Glucose 104 H (74-99) mg/dL POC Glucose (mg/dL) 129 H (75-99) mg/dL Total Protein 6.2 L (6.3-8.2) g/dL Assessment and Plan Assessment: 1. Hiatal hernia, intrathoracic lap band, and gastric prolapse. Patient status post laparoscopic removal of lap band and repair of hiatal hernia. Patient has tolerated surgery well. Continue with current postop orders. Pain is controlled. Esophagram shows no evidence of a postoperative leak. Patient scheduled for discharge today. 2. Essential hypertension: Patient has been having episodes uncontrolled blood pressures after surgery. Improved with hydralazine. Patient is continue with her home medications the benazepril and Norvasc 3. History of fibromyalgia 4. Generalized anxiety disorder. 5. History of Diabetes mellitus type 2 that resolved after weight loss. A1c is pending. She had mildly elevated blood sugars secondary to the Decadron. Blood sugar this morning has improved 6. Leukocytosis likely related to the Decadron no evidence of infection. Patient is afebrile. 7. Acute kidney injury creatinine 1.18. Encourage patient to increase her fluid intake. She'll follow-up with her PCP in 1 week. At that time recommend checking BMP GI prophylaxis Protonix and DVT prophylaxis Lovenox Patient is medically stable for discharge. I performed an examination of the patient and discussed their management with the physician Director [employer]. I have reviewed the Physician Director [employer]'s notes and agree with the documented findings and plan of care
--- NOTE | 2017-11-07 13:53 | P.DS ---
Providers Expected date of discharge: 11/07/17 Attending physician: David Amaro Consults: 11/06/17 12:21 Consult Physician Routine Consulting Provider: Jenn Thrasher Consult Reason/Comments: Medical management Do you want consulting provider notified?: Yes Primary care physician: Aurora Montenegro [place] Hospital Course: 67-year-old female presented on the day of admission to undergo an elective lap band removal in a patient who had interthoracic hiatal hernia with gastric prolapse. The procedure was done on November 06. Patient is a history of morbid obesity with a lap band inserted 2001. Postop the patient underwent esophagram showed no evidence of a leak was tolerating a diet was felt to be appropriate to be discharged home Impression discharge diagnosis Laparoscopic repair of hiatal hernia, removal LAP-BAND for gastric prolapse with intrathoracic hiatal hernia done on November 06 Hypertension essential Anxiety disorder History of morbid obesity with the prior LAP-BAND in 2001 The above impression and plan of care have been discussed and directed by signing physician. Morelia Archer nurse practitioner acting as scribe for signing physician. Plan - Discharge Summary New Discharge Prescriptions: New HYDROcodone/APAP 5-325MG [[place] 5-325] 1 each PO Q4HR PRN #12 tab PRN Reason: Pain Continue traMADol HCL [Ultram] 50 mg PO DIRECTED tiZANidine HCL 4 mg PO Q8HR Pantoprazole [Protonix] 40 mg PO DAILY Multivitamins, Thera [Multivitamin (formulary)] 1 tab PO DAILY Montelukast [Singulair] 10 mg PO DAILY Benazepril HCl 40 mg PO QAM amLODIPine [Norvasc] 5 mg PO QAM Zolpidem [Ambien] 10 mg PO HS Discharge Medication List Benazepril HCl 40 mg PO QAM 10/05/17 [History] Montelukast [Singulair] 10 mg PO DAILY 10/05/17 [History] Multivitamins, Thera [Multivitamin (formulary)] 1 tab PO DAILY 10/05/17 [History ] Pantoprazole [Protonix] 40 mg PO DAILY 10/05/17 [History] amLODIPine [Norvasc] 5 mg PO QAM 10/05/17 [History] tiZANidine HCL 4 mg PO Q8HR 10/05/17 [History] traMADol HCL [Ultram] 50 mg PO DIRECTED 10/05/17 [History] Zolpidem [Ambien] 10 mg PO HS 11/02/17 [History] HYDROcodone/APAP 5-325MG [[place] 5-325] 1 each PO Q4HR PRN #12 tab 11/07/17 [Rx] Follow up Appointment(s)/Referral(s): David Amaro MD [STAFF PHYSICIAN] - 1 Week Activity/Diet/Wound Care/Special Instructions: No tub bath for six weeks. Shower daily. No lifting over 10 pounds for the next 6 weeks. Do not remove the plastic dressings from surgical site Soft diet small meals until seen in the follow-up visit with dr amaro May use ice packs to surgical site. No driving while taking narcotic for pain. Discharge Disposition: HOME WITH HOME HEALTH SERVICES
[2017-11-07 17:58] LABS: Hemoglobin A1C 7.3 % (4.0-6.0)
== END 2017-11-07 14:43 | disposition home health service (06) ==
LOC: OR 08:29 → 6PED 12:18 → OR 11-07 14:43
PROVIDERS: ATTEND Surgery
DX: K44.9 Diaphragmatic hernia without obstruction or gangrene (principal); Z45.89 Encounter for adjustment and management of other implanted devices; Z98.84 Bariatric surgery status; K31.89 Other diseases of stomach and duodenum; R14.1 Gas pain; E66.01 Morbid (severe) obesity due to excess calories; Z68.34 Body mass index [BMI] 34.0-34.9, adult; I10 Essential (primary) hypertension; F41.1 Generalized anxiety disorder; M79.7 Fibromyalgia; D72.829 Elevated white blood cell count, unspecified; N17.9 Acute kidney failure, unspecified; R42 Dizziness and giddiness; K21.9 Gastro-esophageal reflux disease without esophagitis; Z79.899 Other long term (current) drug therapy; Z79.891 Long term (current) use of opiate analgesic; Z86.39 Personal history of other endocrine, nutritional and metabolic disease
CPT/HCPCS: 94760; 80053; 85025; 83036; 74210; 43774; J2250; J1100; J2405; J1650 ×2; J1170; J0690; Q9967

== ENCOUNTER → 2017-11-20 | Outpatient (CLI) | payer MEDICARE ==
[2017-11-20 13:47] VITALS: BP 141/74; PULSE 85; RESP 15; TEMP 97.9; BMI 33.9
--- NOTE | 2017-11-20 13:56 | P.HPBAR ---
Bariatric H&P - History & Physicial H&P Date: 11/20/17 History & Physicial: Visit/CC: f/u from lap band removal and hernia repair Patient initial contact: Initial weight: 141.521 kg Initial weight in pounds: 312.00 Height: 5 ft 5 in Initial BMI: 51.9 Last weight: Current weight: 92.533 kg Current weight in pounds: 204.00 Current BMI: 33.9 [place] body weight (based on NIH guidelines): 56.699 kg Excess body weight loss: 57.7% The patient is a 67 year-old F who presents for Bariatric Assessment. Patient presents today for postoperative follow-up. She had her LAP-BAND removed prostate week ago. She's doing well. She's had no complaints of pain or dysphasia. Past Medical History Past Medical History: Diabetes Mellitus, Fibromyalgia, Hypertension Additional Past Medical History / Comment(s): Type 2 DM resolved one year after lap band placed, chronic sinsusitis History of Any Multi-Drug Resistant Organisms: None Reported Past Surgical History: Bariatric Surgery, Cholecystectomy, Hernia Repair, Hysterectomy Additional Past Surgical History / Comment(s): Lap band 2001 (removed 11/06/17), RAHUL CATARACTS Past Anesthesia/Blood Transfusion Reactions: Motion Sickness, Postoperative Nausea & Vomiting (PONV) Additional Past Anesthesia/Blood Transfusion Reaction / Comm: No blood transfusion to date Past Psychological History: No Psychological Hx Reported Smoking Status: Never smoker Past Alcohol Use History: Rare Past Drug Use History: None Reported - Past Family History Brother(s) Family Medical History: Cancer Father Family Medical History: Deep Vein Thrombosis (DVT) Surgical - Exam Vital Signs Temp Pulse Resp BP 97.9 F 85 15 141/74 11/20/17 13:43 11/20/17 13:43 11/20/17 13:43 11/20/17 13:43 - General well developed, no distress - Eyes PERRL - ENT normal pinna - Neck no masses - Respiratory normal expansion - Cardiovascular Rhythm: regular - Abdomen Abdomen: soft, non tender Bariatric Assessment & Plan Plan: Status post laparoscopic removal of LAP-BAND system. Patient did quite well. Her incision sites are clean dry intact. She'll follow-up in 12 weeks. Bariatric Checklist Checklist: Plan: Checklist: EGD: 1. Hiatal hernia: 2. H. Pylori: HgbA1c: Vitamin D: Smoking: Never smoker Primary care physician referral: denice Montenegro Psychiatry clearance: Cardiology clearance: Sleep study: Diet journal: VTE risk score: VTE risk level: Rehab needs at discharge:
== END | disposition home or self-care (01) ==
LOC: BARWHC3 13:00
PROVIDERS: ATTEND Surgery
DX: Z48.815 Encounter for surgical aftercare following surgery on the digestive system (principal); Z98.84 Bariatric surgery status
CPT/HCPCS: 99211

== ENCOUNTER → 2018-07-23 | Outpatient (CLI) | payer MEDICARE ==
--- NOTE | 2018-07-23 14:13 | XR ---
EXAMINATION TYPE: XR ribs LT DATE OF EXAM: 07/23/2018 COMPARISON: None HISTORY: Pain left chest wall TECHNIQUE: Two-view left RIBS supplemented with a frontal chest FINDINGS: No acute fractures are evident. No pneumothorax is evident. Lung doyle are clear. Hiatal h ernia is present. IMPRESSION: 1. No acute left rib fractures are evident.
== END | disposition home or self-care (01) ==
LOC: RADXRMAIN 13:52
PROVIDERS: ATTEND Family Medicine
DX: R07.89 Other chest pain (principal)

== ENCOUNTER → 2018-08-03 | Outpatient (CLI) | payer MEDICARE ==
[2018-08-07 07:03] LABS: Alt. alternata IgE Class CLASS 0; Alternaria alternata IgE <0.35 kU/L (<0.35); Asperg. fumagatus IgE <0.35 kU/L (<0.35); Asperg. fumagatus IgE Class CLASS 0; Aureo. pullulans IgE <0.35 kU/L (<0.35); Birch(Com.Silvr) IgE <0.35 kU/L (<0.35); Birch(Com.Silvr) IgE Class CLASS 0; Candida albicans IgE Class CLASS 0; Cat Epith & Dander IgE <0.35 kU/L (<0.35); Cat Epith & Dander IgE Class CLASS 0; Clad herbarum IgE <0.35 kU/L (<0.35); Cockroach IgE <0.35 kU/L (<0.35); Com. Pigweed IgE <0.35 kU/L (<0.35); Com. Pigweed IgE Class CLASS 0; Cottonwood IgE <0.35 kU/L (<0.35); Dermato. Pteronyssinus IgE <0.35 kU/L (<0.35); Dermato. farinae IgE <0.35 kU/L (<0.35); Dermato. farinae IgE Class CLASS 0; Dog Dander IgE <0.35 kU/L (<0.35); English Plantain IgE Class CLASS 0; Epicoccum purpurascens Class CLASS 0; Epicoccum purpurascens IgE <0.35 kU/L (<0.35); Johnson Grass IgE Class CLASS 0; Lamb's Quarter IgE <0.35 kU/L (<0.35); Lamb's Quarter IgE Class CLASS 0; Maple (Box Elder) IgE <0.35 kU/L (<0.35); Maple (Box Elder) IgE Class CLASS 0; Mucor racemosus IgE <0.35 kU/L (<0.35); Mucor racemosus IgE Class CLASS 0; Oak IgE <0.35 kU/L (<0.35); Rhizopus nigricans IgE <0.35 kU/L (<0.35); S.rostrata/Helminth Class CLASS 0; S.rostrata/Helminth IgE <0.35 kU/L (<0.35); Sycamore(Mpl.Lf) IgE <0.35 kU/L (<0.35); Timothy Grass IgE <0.35 kU/L (<0.35); Walnut Tree IgE <0.35 kU/L (<0.35); Walnut Tree IgE Class CLASS 0; White Ash IgE Class CLASS 0
== END ==
LOC: LABWHC1 14:55
PROVIDERS: ATTEND Otolaryngology
DX: L50.0 Allergic urticaria (principal); T78.2XXA Anaphylactic shock, unspecified, initial encounter
CPT/HCPCS: 36415; 86003

== ENCOUNTER → 2018-12-28 | Outpatient (CLI) | payer MEDICARE | END | disposition home or self-care (01) | LOC: RADCTMAIN 13:58 | PROVIDERS: ATTEND Physician Assistant Medical | DX: Z53.9 Procedure and treatment not carried out, unspecified reason (principal) ==

== ENCOUNTER → 2019-01-02 | Outpatient (CLI) | payer MEDICARE ==
--- NOTE | 2019-01-02 17:57 | CT ---
EXAMINATION TYPE: CT chest wo con DATE OF EXAM: 01/02/2019 COMPARISON: None HISTORY: myasthenia gravis CT DLP: 422.9 mGycm, Automated exposure control for dose reduction was used. CONTRAST: None. Patient refused IV contrast. TECHNIQUE: Axial images were obtained at 5 mm thick sections. Reconstructed images are reviewed on [employer] computer in the coronal plane. FINDINGS: Portion of the thyroid visualized is normal. No suspicious lung nodules or focal infiltrates are present. No enlarged mediastinal or hilar adenopathy is evident. The ascending aorta diameter at the level o f the main pulmonary artery is 3.8 cm. The main pulmonary artery diameter at the bifurcation is 2.3 cm. Some coronary artery calcification is present. Limited CT sections are obtained through the upper abdomen. There is a moderate size hiatal hernia pr esent. IMPRESSIONS: 1. Moderate size hiatal hernia. 2. No suspicious thymic masses.
== END | disposition home or self-care (01) ==
LOC: RADCTMAIN 12:31
PROVIDERS: ATTEND Psychiatry & Neurology Neurology
DX: K44.9 Diaphragmatic hernia without obstruction or gangrene (principal); G70.00 Myasthenia gravis without (acute) exacerbation
CPT/HCPCS: 71250

== ENCOUNTER → 2019-05-07 | Outpatient (CLI) | payer MEDICARE ==
[2019-05-07 10:56] LABS: Basophils # (A) 0.1 k/uL (0-0.2); Basophils % (A) 1 %; Eosinophils # (A) 0.3 k/uL (0-0.7); Eosinophils % (A) 4 %; HGB 12.3 gm/dL (11.4-16.0); Lymphocytes # (A) 2.5 k/uL (1.0-4.8); Lymphocytes % (A) 31 %; MCH 28.3 pg (25.0-35.0); MCHC 31.6 g/dL (31.0-37.0); MCV 89.6 fL (80.0-100.0); Mean Platelet Volume 7.4; Monocytes # (A) 0.4 k/uL (0-1.0); Monocytes % (A) 5 %; Neutrophils # (A) 4.6 k/uL (1.3-7.7); Neutrophils % (A) 57 %; Platelet Count 392 k/uL (150-450); RBC 4.35 m/uL (3.80-5.40); RDW 14.9 % (11.5-15.5); WBC 8.1 k/uL (3.8-10.6)
[2019-05-07 16:58] LABS: African American GFR (CKD) 53.4 (60.0-200.0); Albumin 4.5 g/dL (3.80-4.90); Albumin/Globulin Ratio 2.37 (1.60-3.17); Anion Gap 7.8 mmol/L (4.00-12.00); BUN/Creat Ratio 23.33 Ratio (12.00-20.00); Calcium 9.6 mg/dL (8.7-10.3); Carbon Dioxide 24.2 mmol/L (21.6-31.8); Globulin 1.9 g/dL (1.6-3.3); Non-African American GFR(CKD) 46.1 (60.0-200.0); Potassium 4.5 mmol/L (3.5-5.5); Total Bilirubin 0.3 mg/dL (0.2-1.2); Total Protein 6.4 g/dL (6.2-8.2)
[2019-05-07 17:08] LABS: Hepatitis B Surface Antigen Non-Reactive (Non-Reactive); Hepatitis C IgG Antibody Non-Reactive (Non-Reactive)
== END | disposition home or self-care (01) ==
LOC: LABWHC1 10:01
PROVIDERS: ATTEND Psychiatry & Neurology Neurology
DX: G47.00 Insomnia, unspecified (principal); D64.9 Anemia, unspecified
CPT/HCPCS: 36415; 80053; 80180; 83519; 85025; 86803; 87340

== ENCOUNTER → 2019-06-03 | Outpatient (CLI) | payer MEDICARE ==
[2019-06-03 15:38] LABS: Basophils # (A) 0.1 k/uL (0-0.2); Basophils % (A) 1 %; Eosinophils # (A) 0.2 k/uL (0-0.7); Eosinophils % (A) 2 %; HCT 40.5 % (34.0-46.0); HGB 12.7 gm/dL (11.4-16.0); Lymphocytes # (A) 2.3 k/uL (1.0-4.8); Lymphocytes % (A) 24 %; MCH 28.3 pg (25.0-35.0); MCHC 31.4 g/dL (31.0-37.0); MCV 90.1 fL (80.0-100.0); Mean Platelet Volume 8.5; Monocytes # (A) 0.6 k/uL (0-1.0); Monocytes % (A) 7 %; Neutrophils # (A) 6.1 k/uL (1.3-7.7); Neutrophils % (A) 65 %; Platelet Count 324 k/uL (150-450); RDW 14.6 % (11.5-15.5); WBC 9.5 k/uL (3.8-10.6)
== END | disposition home or self-care (01) ==
LOC: LABWHC1 13:58
PROVIDERS: ATTEND Psychiatry & Neurology Neurology
DX: G70.00 Myasthenia gravis without (acute) exacerbation (principal)
CPT/HCPCS: 36415; 85025

== ENCOUNTER → 2019-11-25 | Outpatient (CLI) | payer MEDICARE ==
[2019-11-25 15:20] LABS: Basophils # (A) 0.1 k/uL (0-0.2); Basophils % (A) 1 %; Eosinophils # (A) 0.3 k/uL (0-0.7); Eosinophils % (A) 3 %; HCT 40.9 % (34.0-46.0); HGB 12.8 gm/dL (11.4-16.0); Hypochromasia Marked; Lymphocytes # (A) 2.6 k/uL (1.0-4.8); Lymphocytes % (A) 30 %; MCH 27.9 pg (25.0-35.0); MCHC 31.3 g/dL (31.0-37.0); MCV 89.2 fL (80.0-100.0); Mean Platelet Volume 7.8; Monocytes # (A) 0.5 k/uL (0-1.0); Monocytes % (A) 6 %; Neutrophils # (A) 5.3 k/uL (1.3-7.7); Neutrophils % (A) 59 %; Platelet Count 356 k/uL (150-450); RBC 4.58 m/uL (3.80-5.40); RDW 14.2 % (11.5-15.5); WBC 8.8 k/uL (3.8-10.6)
== END | disposition home or self-care (01) ==
LOC: LABWHC1 14:36
PROVIDERS: ATTEND Psychiatry & Neurology Neurology
DX: G70.00 Myasthenia gravis without (acute) exacerbation (principal)
CPT/HCPCS: 36415; 85025

== ENCOUNTER → 2020-02-04 | Outpatient (CLI) | payer MEDICARE ==
[2020-02-04 15:42] LABS: Basophils # (A) 0.1 k/uL (0-0.2); Basophils % (A) 1 %; Eosinophils # (A) 0.4 k/uL (0-0.7); Eosinophils % (A) 4 %; HGB 12.4 gm/dL (11.4-16.0); Hypochromasia Moderate; Lymphocytes # (A) 2.4 k/uL (1.0-4.8); Lymphocytes % (A) 24 %; MCH 27.2 pg (25.0-35.0); MCHC 30.9 g/dL (31.0-37.0); Mean Platelet Volume 7.7; Monocytes # (A) 0.6 k/uL (0-1.0); Monocytes % (A) 6 %; Neutrophils # (A) 6.2 k/uL (1.3-7.7); Neutrophils % (A) 64 %; Platelet Count 339 k/uL (150-450); RBC 4.55 m/uL (3.80-5.40); RDW 14.6 % (11.5-15.5); WBC 9.7 k/uL (3.8-10.6)
== END | disposition home or self-care (01) ==
LOC: LABWHC1 14:36
PROVIDERS: ATTEND Psychiatry & Neurology Neurology
DX: G70.00 Myasthenia gravis without (acute) exacerbation (principal)
CPT/HCPCS: 36415; 85025

== ENCOUNTER → 2020-07-09 | Outpatient (CLI) | payer MEDICARE ==
[2020-07-09 23:04] LABS: Basophils # (A) 0.08 X 10*3/uL (0.00-0.10); Basophils % (A) 0.9 %; Eosinophils # (A) 0.47 X 10*3/uL (0.04-0.35); Eosinophils % (A) 5.1 %; HCT 39.7 % (37.2-46.3); HGB 12.2 g/dL (12.0-15.0); Lymphocytes # (A) 2.66 X 10*3/uL (0.90-5.00); Lymphocytes % (A) 28.6 %; MCH 27.2 pg (27.0-32.0); MCHC 30.7 g/dL (32.0-37.0); MCV 88.4 fL (80.0-97.0); Mean Platelet Volume 11.4 fL (9.5-12.2); Monocytes # (A) 0.88 X 10*3/uL (0.20-1.00); Monocytes % (A) 9.5 %; Neutrophils # (A) 5.17 X 10*3/uL (1.80-7.70); Neutrophils % (A) 55.5 %; Platelet Count 329 X 10*3/uL (140-440); RBC 4.49 X 10*6/uL (4.10-5.20); RDW 15.9 % (11.5-14.5)
== END | disposition home or self-care (01) ==
LOC: LABWHC1 15:07
PROVIDERS: ATTEND Psychiatry & Neurology Neurology
DX: G70.00 Myasthenia gravis without (acute) exacerbation (principal)
CPT/HCPCS: 36415; 83519; 85025

== ENCOUNTER → 2020-11-18 | Outpatient (CLI) | payer MEDICARE ==
[2020-11-18 18:50] LABS: Basophils # (A) 0.07 X 10*3/uL (0.00-0.10); Basophils % (A) 0.8 %; Eosinophils % (A) 4.4 %; HCT 38.1 % (37.2-46.3); HGB 11.5 g/dL (12.0-15.0); Lymphocytes % (A) 25.2 %; MCH 26.4 pg (27.0-32.0); MCHC 30.2 g/dL (32.0-37.0); MCV 87.6 fL (80.0-97.0); Mean Platelet Volume 10.9 fL (9.5-12.2); Monocytes # (A) 0.85 X 10*3/uL (0.20-1.00); Monocytes % (A) 9.3 %; Neutrophils # (A) 5.47 X 10*3/uL (1.80-7.70); Platelet Count 347 X 10*3/uL (140-440); RBC 4.35 X 10*6/uL (4.10-5.20); RDW 14.8 % (11.5-14.5); WBC 9.12 X 10*3/uL (4.50-10.00)
[2020-11-18 23:33] LABS: African American GFR (CKD) 58.9 (60.0-200.0); Albumin 4.3 g/dL (3.80-4.90); Albumin/Globulin Ratio 1.95 (1.60-3.17); Anion Gap 12.8 mmol/L (4.00-12.00); BUN/Creat Ratio 19.09 Ratio (12.00-20.00); Calcium 9.4 mg/dL (8.7-10.3); Carbon Dioxide 21.2 mmol/L (21.6-31.8); Globulin 2.2 g/dL (1.6-3.3); Non-African American GFR(CKD) 50.8 (60.0-200.0); Total Bilirubin 0.3 mg/dL (0.2-1.2); Total Protein 6.5 g/dL (6.2-8.2)
== END | disposition home or self-care (01) ==
LOC: LABWHC1 14:21
PROVIDERS: ATTEND Psychiatry & Neurology Neurology
DX: G70.00 Myasthenia gravis without (acute) exacerbation (principal)
CPT/HCPCS: 36415; 80053; 83519; 83735; 85025

== ENCOUNTER → 2021-03-31 | Outpatient (CLI) | payer MEDICARE ==
[2021-03-31 23:01] LABS: Basophils # (A) 0.11 X 10*3/uL (0.00-0.10); Basophils % (A) 1.2 %; Eosinophils # (A) 0.77 X 10*3/uL (0.04-0.35); Eosinophils % (A) 8.1 %; HCT 41.5 % (37.2-46.3); HGB 11.9 g/dL (12.0-15.0); Lymphocytes # (A) 2.31 X 10*3/uL (0.90-5.00); Lymphocytes % (A) 24.2 %; MCH 25.8 pg (27.0-32.0); MCHC 28.7 g/dL (32.0-37.0); Mean Platelet Volume 10.6 fL (9.5-12.2); Monocytes # (A) 0.84 X 10*3/uL (0.20-1.00); Monocytes % (A) 8.8 %; Neutrophils # (A) 5.49 X 10*3/uL (1.80-7.70); Neutrophils % (A) 57.4 %; Platelet Count 461 X 10*3/uL (140-440); RBC 4.61 X 10*6/uL (4.10-5.20); RDW 15.3 % (11.5-14.5); WBC 9.55 X 10*3/uL (4.50-10.00)
[2021-04-01 02:31] LABS: ALT 16 U/L (8-44); AST 15 U/L (13-35); African American GFR (CKD) 58.9 (60.0-200.0); Albumin 4.1 g/dL (3.8-4.9); Albumin/Globulin Ratio 1.64 (1.60-3.17); Alkaline Phosphatase 95 U/L (41-126); BUN/Creat Ratio 17.09 Ratio (12.00-20.00); Blood Urea Nitrogen 18.8 mg/dL (9.0-27.0); Calcium 9.9 mg/dL (8.7-10.3); Carbon Dioxide 20.3 mmol/L (21.6-31.8); Chloride 104 mmol/L (96-109); Globulin 2.5 g/dL (1.6-3.3); Glucose 230 mg/dL (70-110); Non-African American GFR(CKD) 50.8 (60.0-200.0); Potassium 4.5 mmol/L (3.5-5.5); Sodium 140 mmol/L (135-145); Total Bilirubin <0.20 mg/dL (0.30-1.20); Total Protein 6.6 g/dL (6.2-8.2)
== END | disposition home or self-care (01) ==
LOC: LABWHC1 15:36
PROVIDERS: ATTEND Psychiatry & Neurology Neurology
DX: G70.00 Myasthenia gravis without (acute) exacerbation (principal)
CPT/HCPCS: 36415; 80053; 85025

== ENCOUNTER → 2021-08-19 | Outpatient (CLI) | payer MEDICARE ==
[2021-08-19 18:58] LABS: Basophils # (A) 0.08 X 10*3/uL (0.00-0.10); Basophils % (A) 0.7 %; Eosinophils # (A) 0.39 X 10*3/uL (0.04-0.35); Eosinophils % (A) 3.5 %; HCT 39.9 % (37.2-46.3); HGB 11.6 g/dL (12.0-15.0); Immature Grans, Automated 0.3 %; Lymphocytes # (A) 2.59 X 10*3/uL (0.90-5.00); Lymphocytes % (A) 23.2 %; MCH 24.8 pg (27.0-32.0); MCHC 29.1 g/dL (32.0-37.0); MCV 85.4 fL (80.0-97.0); Mean Platelet Volume 11.7 fL (9.5-12.2); Monocytes # (A) 0.76 X 10*3/uL (0.20-1.00); Monocytes % (A) 6.8 %; NRBC Per 100 WBC 0 /100 WBCS (0.0-0.0); Neutrophils # (A) 7.29 X 10*3/uL (1.80-7.70); Neutrophils % (A) 65.5 %; Platelet Count 337 X 10*3/uL (140-440); RBC 4.67 X 10*6/uL (4.10-5.20); RDW 16.7 % (11.5-14.5); WBC 11.14 X 10*3/uL (4.50-10.00)
[2021-08-19 19:03] LABS: ALT 14 U/L (8-44); AST 12 U/L (13-35); African American GFR (CKD) 65.6 (60.0-200.0); Albumin 4.5 g/dL (3.8-4.9); Albumin/Globulin Ratio 1.96 (1.60-3.17); Alkaline Phosphatase 85 U/L (41-126); Blood Urea Nitrogen 20.5 mg/dL (9.0-27.0); Calcium 10.2 mg/dL (8.7-10.3); Carbon Dioxide 23.9 mmol/L (20.0-27.5); Chloride 103 mmol/L (96-109); Globulin 2.3 g/dL (1.6-3.3); Glucose 228 mg/dL (70-110); Non-African American GFR(CKD) 56.6 (60.0-200.0); Potassium 4.8 mmol/L (3.5-5.5); Sodium 140 mmol/L (135-145); Total Bilirubin <0.15 mg/dL (0.30-1.20); Total Protein 6.8 g/dL (6.2-8.2)
== END | disposition home or self-care (01) ==
LOC: LABWHC1 12:46
PROVIDERS: ATTEND Nurse Practitioner Adult Health
DX: G70.00 Myasthenia gravis without (acute) exacerbation (principal)
CPT/HCPCS: 36415; 80053; 85025

== ENCOUNTER → 2021-09-23 | Outpatient (CLI) | payer MEDICARE ==
[2021-09-23 18:10] LABS: Basophils # (A) 0.06 X 10*3/uL (0.00-0.10); Basophils % (A) 0.5 %; Eosinophils # (A) 0.08 X 10*3/uL (0.04-0.35); Eosinophils % (A) 0.7 %; HGB 11.4 g/dL (12.0-15.0); Immature Grans, Automated 0.4 %; Lymphocytes # (A) 1.29 X 10*3/uL (0.90-5.00); Lymphocytes % (A) 11.4 %; MCH 24.9 pg (27.0-32.0); MCHC 29.2 g/dL (32.0-37.0); MCV 85.2 fL (80.0-97.0); Mean Platelet Volume 10.6 fL (9.5-12.2); Monocytes # (A) 0.47 X 10*3/uL (0.20-1.00); Monocytes % (A) 4.2 %; NRBC Per 100 WBC 0 /100 WBCS (0.0-0.0); Neutrophils # (A) 9.36 X 10*3/uL (1.80-7.70); Neutrophils % (A) 82.8 %; Platelet Count 372 X 10*3/uL (140-440); RBC 4.58 X 10*6/uL (4.10-5.20); RDW 17.2 % (11.5-14.5)
[2021-09-23 18:12] LABS: ALT 15 U/L (8-44); AST 13 U/L (13-35); African American GFR (CKD) 65.6 (60.0-200.0); Albumin 4.5 g/dL (3.8-4.9); Albumin/Globulin Ratio 1.88 (1.60-3.17); Alkaline Phosphatase 80 U/L (41-126); Blood Urea Nitrogen 17.7 mg/dL (9.0-27.0); Calcium 9.6 mg/dL (8.7-10.3); Carbon Dioxide 23.9 mmol/L (20.0-27.5); Chloride 103 mmol/L (96-109); Globulin 2.4 g/dL (1.6-3.3); Glucose 274 mg/dL (70-110); Non-African American GFR(CKD) 56.6 (60.0-200.0); Potassium 5.2 mmol/L (3.5-5.5); Sodium 140 mmol/L (135-145); Total Bilirubin <0.15 mg/dL (0.30-1.20); Total Protein 6.9 g/dL (6.2-8.2)
[2021-09-23 18:17] LABS: Immunoglobulin M 66.4 mg/dL (40.0-280.0)
== END | disposition home or self-care (01) ==
LOC: LABWHC1 12:47
PROVIDERS: ATTEND Psychiatry & Neurology Neurology
DX: G70.00 Myasthenia gravis without (acute) exacerbation (principal)
CPT/HCPCS: 36415; 80053; 82784; 85025

== ENCOUNTER → 2021-12-03 | Outpatient (CLI) | payer MEDICARE ==
[2021-12-03 17:46] LABS: Basophils # (A) 0.08 X 10*3/uL (0.00-0.10); Basophils % (A) 0.8 %; Eosinophils # (A) 0.23 X 10*3/uL (0.04-0.35); Eosinophils % (A) 2.2 %; HCT 40.2 % (37.2-46.3); HGB 12.1 g/dL (12.0-15.0); Immature Grans, Automated 0.2 %; Lymphocytes # (A) 2.15 X 10*3/uL (0.90-5.00); Lymphocytes % (A) 20.7 %; MCH 25.6 pg (27.0-32.0); MCHC 30.1 g/dL (32.0-37.0); Monocytes # (A) 0.89 X 10*3/uL (0.20-1.00); Monocytes % (A) 8.6 %; NRBC Per 100 WBC 0 /100 WBCS (0.0-0.0); Neutrophils # (A) 7.03 X 10*3/uL (1.80-7.70); Neutrophils % (A) 67.5 %; Platelet Count 397 X 10*3/uL (140-440); RBC 4.73 X 10*6/uL (4.10-5.20); RDW 15.9 % (11.5-14.5)
[2021-12-03 18:17] LABS: African American GFR (CKD) 59.8 (60.0-200.0); Albumin 4.3 g/dL (3.8-4.9); Albumin/Globulin Ratio 1.56 (1.60-3.17); Anion Gap 10.9 mmol/L (10.00-18.00); BUN/Creat Ratio 18.8 Ratio (12.00-20.00); Blood Urea Nitrogen 20.3 mg/dL (9.0-27.0); Calcium 9.8 mg/dL (8.7-10.3); Carbon Dioxide 26.1 mmol/L (20.0-27.5); Globulin 2.8 g/dL (1.6-3.3); Non-African American GFR(CKD) 51.6 (60.0-200.0); Potassium 3.8 mmol/L (3.5-5.5); Total Bilirubin 0.3 mg/dL (0.30-1.20)
== END | disposition home or self-care (01) ==
LOC: LABWHC1 11:14
PROVIDERS: ATTEND Psychiatry & Neurology Neurology
DX: G70.00 Myasthenia gravis without (acute) exacerbation (principal)
CPT/HCPCS: 36415; 80053; 85025

== ENCOUNTER → 2023-07-11 | Outpatient (CLI) | payer MEDICARE ==
[2023-07-11 16:16] LABS: HCT 36.6 % (37.2-46.3); HGB 10.7 g/dL (12.0-15.0); MCH 22.8 pg (27.0-32.0); MCHC 29.2 g/dL (32.0-37.0); MCV 77.9 FL (80.0-97.0); Mean Platelet Volume 10.3 FL (9.5-12.2); NRBC Per 100 WBC 0 X 10*3/uL (0.00-0.01); Platelet Count 497 X 10*3/uL (140-440); RDW 18.7 % (11.5-14.5); WBC 9.52 X 10*3/uL (4.50-10.00)
[2023-07-11 18:41] LABS: Blood Urea Nitrogen 13.9 mg/dL (9.0-27.0); Carbon Dioxide 24.8 mmol/L (21.6-31.8); Chloride 103 mmol/L (96-109); Potassium 4.2 mmol/L (3.5-5.5); Sodium 142 mmol/L (135-145)
== END | disposition home or self-care (01) ==
LOC: LABPAT 12:15
PROVIDERS: ATTEND Internal Medicine Clinical Cardiac Electrophysiology
DX: Z01.812 Encounter for preprocedural laboratory examination (principal); I50.9 Heart failure, unspecified; I48.92 Unspecified atrial flutter
CPT/HCPCS: 36415; 80051; 82565; 84520; 85027

== ENCOUNTER 2023-07-13 06:12 | Day surgery (SDC) | payer MEDICARE ==
[2023-07-07 12:36] VITALS: BMI 34.2
[2023-07-13] MEDS: SODIUM CHLORIDE 0.9% 1,000 ML IV SCH (07:05)
[2023-07-13 07:08] LABS: Glucose,Whole Blood 186 mg/dL (70-110)
[2023-07-13] MEDS: BENZOCAINE SPRAY 1 CAN TOPICAL ONE (07:38)
[2023-07-13] MEDS: MIDAZOLAM 2 MG/2 ML VIAL IVP ONE ×2 (07:38→07:47)
[2023-07-13] MEDS: fentaNYL (PF) 50 MCG/ML 2 ML AMP IVP ONE (07:42)
[2023-07-13] MEDS: ONDANSETRON 4 MG/2 ML VIAL IVP ONE (07:44)
[2023-07-13 07:51] LABS: ALT 21 U/L (4-34)
--- NOTE | 2023-07-13 08:10 | P.TEE ---
Date of Procedure: 07/13/23 Description of Procedure(s): Procedure performed: 1. Transesophageal Echocardiogram with color flow doppler, pulsed wave doppler and continuous wave doppler 2. Moderate conscious sedation. Sedation time 16 mins. Indications: Patient is an hospital for an outpatient atrial fibrillation ablation procedure. She was scheduled for a KAROLINA to evaluate if there is any evidence of intracardiac thrombus prior to the ablation procedure. Consent: I have discussed the risks, benefits and alternative therapies for the above-mentioned procedure. The patient has indicated understanding and acceptance of the risks of the procedure. Signed consent was obtained and was placed in the paper chart. Procedural Steps: Timeout was performed in usual fashion. Patient's heart rate, blood pressure, oxygen saturation and ECG were monitored. Benzocaine was sprayed liberally in the back of the throat. Bite block was placed between the jaw. 3 mg of Versed and 50 mcg of Fentanyl were administered intravenously. After achieving appropriate moderate conscious sedation, KAROLINA probe was advanced without difficulty and without any immediate complications to the esophagus. KAROLINA study was performed with color flow doppler, pulsed wave doppler and continuous wave doppler. The probe was then removed. Patient tolerated the procedure well. Patient was transferred to the post procedure area in stable and satisfactory condition. Throughout the procedure patient's heart rate, blood pressure, oxygen saturation and ECG were monitored. Total sedation time 16 mins. Complications: none FINDINGS Left Atrium: Normal Left atrial size. No evidence of mass or thrombus seen Left Atrial Appendage: No evidence of thrombus or mass seen in MONI Inter atrial septum: Intact inter-atrial septum with no evidence of atrial septal defect or patent foramen ovale. Left Ventricle: Normal global LV size and systolic function Right Atrium: Normal overall RV size Right Ventricle: Normal global RV size and systolic function Aortic Valve: Structurally normal Trileaflet, no significant calcification. No significant stenosis or regurgitation on color doppler assessment. Mitral Valve: Moderate MR. Detail evaluation limited due to limited nature of the study Pulmonic Valve: Not well visualized. Tricuspid Valve: Structurally normal. Ascending aorta, Aortic root and Aortic arch: Normal size aortic root and ascending aorta. Mild intimal thickening. CONCLUSION: No evidence of left atrium or left atrial appendage thrombus Intact interatrial septum with no concerns of ASD or PFO on color Doppler Moderate MR Overall normal LV size and global systolic function Limited echo as patient got nauseous intraoperatively. No complications no vomiting no concerns of aspiration Santiago Garcia MD, RPVI, FACC Thank you for allowing [facility] to participate in this patient's care. Feel free to reach out in case of any followup questions.
[2023-07-13] MEDS: SODIUM CHLORIDE 0.9% 1,000 ML IV ONE (08:17)
[2023-07-13] MEDS: FUROSEMIDE 10 MG/ML 4 ML VIAL IV STA (08:24)
[2023-07-13 08:33] LABS: AST 53 U/L (14-36); Magnesium 1.6 mg/dL (1.6-2.3)
[2023-07-13] MEDS ORDERED: PHENYLEPHRINE-0.9% NACL SYG 1,000 MCG/10 ML SYRINGE ONE (10:13)
[2023-07-13] MEDS ORDERED: ROCURONIUM 10 MG/ML (5 ML VIAL) IV ONE (10:13)
[2023-07-13] MEDS ORDERED: NEOSTIGMINE 1 MG/ML 10 ML VIAL ONE (10:13)
[2023-07-13] MEDS ORDERED: ePHEDrine 50 MG/ML 1 ML VIAL ONE (10:13)
[2023-07-13] MEDS ORDERED: PROPOFOL 10 MG/ML 20 ML VIAL IV ONE (10:13)
[2023-07-13] MEDS ORDERED: DEXAMETHASONE SOD PHOSPHATE 4 MG/ML 1 ML VIAL ONE (10:13)
[2023-07-13] MEDS ORDERED: fentaNYL (PF) 50 MCG/ML 2 ML AMP ONE (10:13)
[2023-07-13] MEDS ORDERED: SUCCINYLCHOLINE CHLORIDE 200 MG/10 ML VIAL IV ONE (10:13)
[2023-07-13] MEDS ORDERED: ONDANSETRON 4 MG/2 ML VIAL ONE (10:13)
[2023-07-13] MEDS ORDERED: GLYCOPYRROLATE 0.2 MG/ML 2 ML VIAL ONE (10:13)
[2023-07-13] MEDS ORDERED: LIDOCAINE 1% INJ 10MG/ML (20 ML MDV) ONE (10:33)
[2023-07-13] MEDS: LIDOCAINE 1% INJ 10MG/ML (20 ML MDV) SQ ONE (10:47)
[2023-07-13] MEDS: HEPARIN SODIUM (1,000 UNIT/ML) 1,000 UNIT in SODIUM CHLORIDE 0.9% 1,000 ML IRRIGATION ONE (10:47)
[2023-07-13] MEDS ORDERED: ALPRAZolam 0.25 MG TAB PO PRN (12:20)
[2023-07-13] MEDS ORDERED: ACETAMINOPHEN TAB 325 MG TAB PO PRN (12:24)
--- NOTE | 2023-07-13 12:39 | P.EPPROC ---
- EP Procedure Note Electrophysiology Procedure Note: Diagnosis typical atrial flutter with RVR, persistent Symptomatic with shortness of breath KAROLINA did not show any intracardiac mass or thrombus today Patient has been anticoagulated for the last 2 weeks with Eliquis Final diagnosis Typical atrial flutter cavotricuspid dependent Successful RF ablation with bidirectional block with differential pacing Intracardiac echo revealed preserved LV systolic function and thickened pericardium at the base of the LV close to the left atrium with trace effusion Procedure Patient was brought to the EP lab in a fasting state. Written informed consent was obtained prior to the procedure. General anesthesia provided Venous sheaths placed in the right left femoral veins Diagnostic catheters placed in the coronary sinus right ventricle His bundle area and high right atrium Counterclockwise activation noted in the right atrium, tachycardia cycle length 210 ms Concentric activation in the coronary sinus Entrainment mapping from the cavotricuspid isthmus performed Isthmus dependency proven Electrical cardioversion performed to sinus rhythm In sinus rhythm 3D electroanatomic mapping performed Isthmus tagged along the tricuspid annulus and eustachian ridge Transfer tech RF ablation performed from the tricuspid valve to the eustachian ridge Complete RF line of block made and interrogated with pacing maneuvers Differential pacing performed bidirectional block proven Isthmus conduction time greater than 150 ms in both directions In sinus rhythm, MA interval 185 ms, QRS 103 ms, sinus cycle length 1064 ms AH 60 ms and HV interval 33 ms AV node Wenckebach block 370 ms Para-Hisian pacing revealed a teena response Frequent PACs with atrial pacing from the high right atrium Sinus node recovery time at a pacing cycle length of 500 ms was 1357 ms Patient tolerated procedure well without any acute complications Intracardiac echo did not show any new effusion All catheters removed. Vascade closure device applied Hemostasis assured
--- NOTE | 2023-07-13 12:43 | P.PRLE ---
RE: Samaria Reid Dear Samaria Francisco underwent a KAROLINA today which showed preserved LV systolic function and no evidence for intracardiac mass or thrombus She had been anticoagulated with Eliquis for the last 2 weeks Following that she underwent successful atrial flutter ablation to sinus rhythm. She was very symptomatic from atrial flutter and was quite short of breath She tolerated the procedure well without any acute complications I would continue Eliquis along with low-dose beta-blockers at this time Thank you for entrusting me with the care of the patient Warm regards Sincerely Sctotie Resendiz
[2023-07-13 12:46] LABS: Glucose,Whole Blood 180 mg/dL (70-110)
[2023-07-13] MEDS: METOPROLOL TARTRATE 50 MG TAB PO STA (13:27)
[2023-07-13] MEDS: ONDANSETRON 4 MG/2 ML VIAL ONE (14:10)
[2023-07-13] MEDS: fentaNYL (PF) 50 MCG/ML 2 ML AMP ONE (14:10)
[2023-07-13] MEDS: PYRIDOSTIGMINE 60 MG TAB PO SCH (16:01)
[2023-07-13] MEDS: metFORMIN 500 MG TAB PO SCH (16:01)
[2023-07-13] MEDS: LACTATED RINGERS 1,000 ML IV SCH (16:11)
[2023-07-13] MEDS: ACETAMINOPHEN IV (For NPO) 1,000 MG in EMPTY BAG 1 BAG IVPB ONE (19:54)
[2023-07-13] MEDS: METOPROLOL TARTRATE 25 MG TAB PO SCH (20:02)
[2023-07-13] MEDS: MONTELUKAST 10 MG TAB PO SCH (20:02)
[2023-07-13] MEDS: APIXABAN 5 MG TAB PO SCH (20:02)
[2023-07-13 22:06] VITALS: RESP 16
[2023-07-14 06:10] LABS: Glucose,Whole Blood 132 mg/dL (70-110)
[2023-07-14] MEDS: amLODIPine 10 MG TAB PO SCH (08:28)
[2023-07-14] MEDS: lisinopriL 20 MG TAB PO SCH (08:29)
[2023-07-14] MEDS: ATORVASTATIN 20 MG TAB PO SCH (08:29)
[2023-07-14] MEDS: SERTRALINE 50 MG TAB PO SCH (08:29)
[2023-07-14 08:45] VITALS: BP 146/75; PULSE 61; TEMP 98.2
--- NOTE | 2023-07-14 08:52 | DS ---
DISCHARGE SUMMARY Samaria Reid was referred to me for atrial flutter with shortness of breath even at rest. She was anticoagulated with Eliquis and then brought in yesterday. A KAROLINA showed preserved LV systolic function and no evidence for left atrial appendage thrombus. Subsequently yesterday, she underwent an atrial flutter ablation successfully. She is in normal rhythm. She does have frequent PACs and occasional very slow atrial tachycardia which has a W shaped pattern of P wave consistent with right atrial tachycardia close to the tricuspid annulus. However, with low-dose beta blockers, this is very well controlled and was not targeted for ablation. During the ablation, she only had PACs. Today, rhythm is normal. She remains on beta-blockers. She remains on anticoagulation. Heart sounds are normal. Breath sounds are clear. She feels a lot better. Blood pressure is in the normal range. IMPRESSION: Typical atrial flutter with rapid ventricular response, very symptomatic. Status post successful ablation for typical atrial flutter yesterday. Maintain sinus rhythm. PLAN: Continue beta-blockers for suppression of PACs and a very slow atrial tachycardia from the right atrium. Continue anticoagulation lifelong. Follow up in a week. She may go home today. She is stable from a cardiac standpoint. MMODL / IJN: [id number] /
== END 2023-07-14 11:00 | disposition home or self-care (01) ==
LOC: CATHCVL 06:12 → 6NMEDSUR 12:48 → CATHCVL 07-14 11:00
PROVIDERS: ATTEND Internal Medicine Clinical Cardiac Electrophysiology
DX: I48.92 Unspecified atrial flutter (principal); I50.9 Heart failure, unspecified; E11.9 Type 2 diabetes mellitus without complications; E78.5 Hyperlipidemia, unspecified; Z79.899 Other long term (current) drug therapy; Z79.84 Long term (current) use of oral hypoglycemic drugs
CPT/HCPCS: 93312; 93320; 93325; 92960; 93662; 93653; 86900; 86901; 84443; 83735; 84450; 84460; 86850; C1759; C1894; C1769; C1760; C1730; C1893; C1732; J2250; J0330; J1100; J1940; J2710; J2405; J2001; J3010; J1644; J2704; J2371